=== PATIENT | male | born 1955 | race Two or more races ===

== ENCOUNTER 2023-07-30 18:14 | Emergency (ER) | payer OTHER, MEDICAID ==
[~2023-07-30] VITALS: Ht 177.8 cm; Wt 115.0 kg
[2023-07-30 18:50] VITALS: PULSE 111; RESP 12; O2SAT 97
[2023-07-30 21:35] LABS: Alanine Aminotransferase 11 U/L (7-40); Albumin 3.1 g/dL (3.2-4.8); Alkaline Phosphatase 64 U/L (46-116); Anion Gap 7.1 (5-15); Aspartate Aminotransferase 10 U/L (13-40); BUN/Creatinine Ratio 8.5 (10.0-20.0); Bilirubin, Total 0.4 mg/dL (0.2-1.0); Blood Urea Nitrogen 17 mg/dL (9-23); Calcium 8.3 mg/dL (8.5-10.1); Carbon Dioxide 29.9 mmol/L (20-30); Chloride 103 mmol/L (98-107); Glucose 126 mg/dL (74-106); Potassium 3.4 mmol/L (3.5-5.1); Sodium 140 mmol/L (136-145); Total Protein 4.9 g/dL (5.7-8.2)
[2023-07-30 21:42] LABS: Basophils # (auto) 0 10 ^3/uL (0-0.2); Basophils % (auto) 0.7 % (0.0-2.0); Eosinophils % (auto) 1.1 % (0.0-7.0); Lymphocytes # (auto) 0.3 10 ^3/uL (0.4-5.4); Monocytes # (auto) 0.2 10 ^3/uL (0-1.3); Nucleated Red Blood Cells % 0.1 %; Red Blood Cells 2.19 10^6/uL (4.5-5.90)
[2023-07-30 21:45] LABS: Eosinophils # (auto) 0 10 ^3/uL (0-0.8); Hematocrit 20.4 % (41.0-53.0); Lymphocytes % (auto) 6.5 % (10.0-50.0); Mean Corpuscular Hemoglobin 31.5 pg (28.0-32.0); Mean Corpuscular Hgb Conc. 33.8 g/dL (32.0-36.0); Mean Corpuscular Volume 93.1 fL (80.0-100.0); Monocytes % (auto) 4.3 % (0.0-12.0); Neutrophils % (auto) 87.4 % (37.0-80.0); White Blood Cell 4.6 10^3/uL (4.4-10.8)
[2023-07-30 22:17] LABS: Hemoglobin 6.9 g/dL (13.5-17.5)
[2023-07-30 22:32] LABS: Anisocytosis Slight; Platelet Estimate Decreased
[2023-07-31] VITALS (12 sets, daily range): BP systolic 97–132; BP diastolic 62–81; PULSE 95–107; RESP 9–21; TEMP 97.7–98.3; O2SAT 92–100
== END 2023-07-30 22:21 | disposition home or self-care (01) ==
LOC: ER 18:14 → EDBD 18:14 → ER 22:21
DX: D64.9 Anemia, unspecified (principal); I12.0 Hypertensive chronic kidney disease with stage 5 chronic kidney disease or end stage renal disease; E11.22 Type 2 diabetes mellitus with diabetic chronic kidney disease; N18.6 End stage renal disease; Z99.2 Dependence on renal dialysis
CPT/HCPCS: 36415; 36430; 80053; 85025; 86850; 86900; 86901; 86920; 99291; P9016; 93005